=== PATIENT | male | born 1960 | race Caucasian/White ===

== ENCOUNTER → 2020-10-18 12:05 | Outpatient (CLI) | payer BC, SELFPAY ==
--- NOTE | 2020-10-18 12:11 | XR_ITS ---
PROCEDURE: XR KNEE RT 4V CLINICAL INDICATION: RT knee pain COMPARISON: No exams were available for comparison FINDINGS: No fracture or dislocation. No lytic or blastic change. There is normal mineralization. Moderate joint space narrowing medially and there is minor spurring of the tibial spines. There is no effusion. IMPRESSION: Mild degenerative changes medial joint space, no fracture seen Dictated by: Dr. Adelso Long MD 10/18/2020 13:49 Dr. Adelso Long MD in [place] 10/18/2020 13:49
== END ==
PROVIDERS: Visit Provider Orthopaedic Surgery
DX: M25.561 Pain in right knee (principal)
CPT/HCPCS: 73564

== ENCOUNTER 2022-06-22 12:02 | Emergency (ER) | payer BC, SELFPAY ==
[2022-06-22 12:03] VITALS: BP 130/78; PULSE 78; RESP 18; TEMP 36.7; O2SAT 96; BMI 27.8
[2022-06-22 12:08] VITALS: BP 130/78; PULSE 80; RESP 16; O2SAT 97
--- NOTE | 2022-06-22 12:29 | HMH.EDGENADL ---
Discharge Plan Disposition Patient Disposition: Home, Self-Care Condition: Good Prescriptions Prescriptions: New erythromycin 5 mg/gram (0.5 %) ointment 1 applic ophthalmic (eye) TID 7 Days Qty: 5 0RF ciprofloxacin HCl 0.3 % drops See Rx Instructions .ROUTE .COMPLEX Qty: 10 0RF Rx Instructions: put 1-2 drps in affected eye(s) every 2hr up to 8 times/day x2days; then 4 times/day x5days Referrals Follow up/Referrals: Provider,MD Mary [Primary Care Provider] - See instructions Michael Dasilva MD [Staff Physician] - See instructions (Corneal abrasion with foreign body on 06/22. Follow-up) Activity Restrictions/Add. Instructions Additional Instructions/Restrictions: Follow-up with primary care as discussed. If you have any other concerning signs or symptoms, return to the emergency department for further evaluation Clinical Impressions Clinical Impression: Foreign body, intraocular, right eye Corneal abrasion Qualifiers: Encounter type: initial encounter Laterality: right Qualified Code(s): S05.01XA - Injury of conjunctiva and corneal abrasion without foreign body, right eye, initial encounter Discharge ED Provider: Jethro Winn General Adult HPI General Chief complaint: Eye Problems Stated complaint: [id number] Saw dust in eye home accident Time Seen by Provider: 06/22/22 12:20 Mode of Arrival: Ambulatory Source of Information: Patient Limitations: No Limitations Description of Symptoms (Recalled from ER Triage Doc. by RN): pt reports saw dust in R eye x2 days. Pt reports f/b moves around at times and causes pain and blurry vision. Redness noted to R eye. History of Present Illness HPI narrative: This is an otherwise healthy 62-year-old male who is presenting with eye complaint. Patient states that he had sawdust flew into his eye approximately 2 days prior to arrival while he was cutting stairs. Denies any metal work. Patient states that he usually just sleeps and the dust works its way out, however this time it has not. Denies blurry vision, double vision, fevers, chills, scalp pain, any other trauma. He states he has a foreign body sensation in the superior, lateral aspect of his eye without overt pain. Related Data Previous Rx's Medication Instructions Recorded ciprofloxacin HCl 0.3 % eye drops See Rx Instructions ophthalmic 06/22/22 (eye) .COMPLEX #10 mL erythromycin 5 mg/gram (0.5 %) eye 1 applic ophthalmic (eye) TID 7 06/22/22 ointment days #5 grams Allergies Allergy/AdvReac Type Severity Reaction Status Date / Time No Known Allergies Allergy Verified 01/20/21 12:41 [facility] Social History Smoking Status: Never smoker alcohol intake: never substance use type: denies use current occupational status: employed Travel in the last 8 weeks: None household members: family housing: house ROS Obtained: Yes All systems reviewed & no additional complaints except as documented Physical Exam General General appearance: alert and in no apparent distress Head Head exam: atraumatic, normocephalic and normal inspection Eye Eye exam: Present PERRL, EOMI, conjunctival redness and conjunctival injection; Absent jaundice, discharge, nystagmus, mydriasis, periorbital swelling or periorbital tenderness Expanded Eye Exam Slit lamp exam: performed Eyelids: bilateral: normal inspection Pupils: Bilateral: regular, round and irregular Sclera/Conjunctival: left: normal inspection and right: injection and foreign body (Wooden splinter) Comment: Fluorescein uptake lower inferior aspect of bulbar conjunctiva. Foreign body removed with improved symptoms. ENT ENT exam: Present normal exam, normal oropharynx, mucous membranes moist, TM's normal bilaterally and normal external ear exam Neck Neck exam: Present normal inspection, full ROM and trachea midline; Absent meningismus or lymphadenopathy Chest Chest inspection: Present normal inspection and symmetric chest wall rise;
[2022-06-22 12:30] VITALS: BP 120/71; PULSE 79; RESP 17; O2SAT 96
[2022-06-22 13:00] VITALS: BP 131/74; PULSE 67; RESP 17; O2SAT 99
--- NOTE | 2022-06-22 13:00 | PC.NURSE ---
at the bedside
[2022-06-22 13:24] VITALS: BP 128/60; PULSE 64; RESP 18; TEMP 36.7; O2SAT 99
== END 2022-06-22 13:25 | disposition home or self-care (01) ==
PROVIDERS: Emergency Provider Emergency Medicine
DX: S05.51XA Penetrating wound with foreign body of right eyeball, initial encounter (principal); S05.00XA Injury of conjunctiva and corneal abrasion without foreign body, unspecified eye, initial encounter
CPT/HCPCS: 99283

== ENCOUNTER 2025-01-27 18:15 | Outpatient (CLI) | payer BC, SELFPAY ==
--- NOTE | 2025-01-27 15:15 | ECG_ITS ---
APPROVED REPORT Exam: Resting ECG HR:56 bpm ECG Measurements Heart Rate 56 AXES MO 145 P 62 QRSd 113 QRS 73 QT 383 T 63 QTc 374 Conclusion SINUS BRADYCARDIA OW normal ECG UNCONFIRMED REPORT Electronically signed by : Kin Ta MD 01/28/2025 07:30:08
[2025-01-27 18:50] LABS: Alanine Aminotransferase 42 U/L (12-78); Albumin Level 4.2 g/dl (3.5-5.0); Albumin/Globulin Ratio 1.8 (1.1-1.8); Alkaline Phosphatase 48 U/L (38-126); Anion Gap 10.1 mEq/L (5-15); Aspartate Amino Transferase 35 U/L (17-59); Bilirubin,Total 0.5 mg/dl (0.2-1.3); Blood Urea Nitrogen 20 mg/dl (9-20); Calcium 9.2 mg/dl (8.4-10.2); Carbon Dioxide 26 mmol/L (22.0-30.0); Chloride 108 mmol/L (98-107); Chol/HDL Ratio 4.7 (1-3.5); Cholesterol 201 mg/dl (140-200); Estimated Glomerular Filt Rate 75 ml/min (>60); GFR (African American) 91 ML/MIN (>60); Globulin 2.3 g/dL (1.3-3.2); Glucose 80 mg/dl (74-100); HDL Cholesterol 43 mg/dl (40-60); Potassium 4.1 mmoL/L (3.5-5.1); Sodium 140 mmol/L (136-145); Total Protein,Serum 6.5 g/dl (6.3-8.2); Triglycerides 201 mg/dl (30-150); VLDL Cholesterol 40 mg/dL (0-40)
[2025-01-27 19:00] LABS: Direct LDL Cholesterol 134.94 mg/dL (100-129)
[2025-01-27 19:08] LABS: 25-OH Vitamin D, Total 47.4 ng/mL (30-100)
[2025-01-27 19:17] LABS: Basophils % 0.5 % (0.1-2.0); Eosinophils # 0.1 Kmm3 (0.0-0.4); Eosinophils % 1.1 % (0.1-12.0); Hematocrit 45.5 % (42.0-52.0); Immature Granulocytes # 0.01 10^3uL; Immature Granulocytes % 0.2 %; Lymphocytes # 1.8 K/mm3 (0.7-4.5); Lymphocytes % 28.8 % (10-50); Mean Corpuscular HGB Conc 30.8 g/dL (31.8-35.4); Mean Corpuscular Volume 100.9 fl (80-94); Mean Platelet Volume 11.9 fl (7.4-10.4); Monocytes # 0.4 K/mm3 (0.1-1.0); Monocytes % 6.6 % (1.7-9.3); Neutrophils # 3.9 K/mm3 (1.8-7.8); Neutrophils % 62.8 % (37.0-80.0); Nucleated Red Blood Cells # 0 10^3/uL; Nucleated Red Blood Cells % 0 %; Platelet Count 138 K/mm3 (142-424); Red Blood Count 4.51 M/mm3 (4.60-6.20); Red Cell Distribution Width 14.8 % (11.5-17.5); Red Cell Distribution Width-SD 55.9 fL; White Blood Count 6.2 K/mm3 (4.8-10.8)
[2025-01-27 19:21] LABS: Prostate Specific Ag Screen 0.7 ng/ml (0.0-4.0); Thyroid Stimulating Hormone 1.42 uIU/mL (0.465-4.68)
[2025-01-27 19:40] LABS: Vitamin B12 400 pg/mL (239-931)
[2025-01-27 19:43] LABS: HIV Combo NEGATIVE (Negative)
[2025-01-27 19:47] LABS: Hepatitis C Ab Qual. W/ RFX NEGATIVE (Negative)
[2025-01-27 20:11] LABS: Hemoglobin A1C 5.7 % (4.0-6.0)
== END 2025-01-27 23:59 | disposition home or self-care (01) ==
LOC: LAB 18:16
PROVIDERS: PCP Family Medicine; Visit Provider Family Medicine
DX: R53.83 Other fatigue (principal); R00.1 Bradycardia, unspecified
CPT/HCPCS: 36415; 80053; 80061; 82306; 82607; 83036; 84443; 85025; 86803; 87389; 93005; G0103

== ENCOUNTER 2025-02-16 10:06 | Outpatient (CLI) | payer BC, SELFPAY ==
--- NOTE | 2025-02-16 | CA_ITS ---
APPROVED REPORT Exam: Pharmacologic Technologist: Sue Cabrera Ht: 5 ft 11 in Wt: 219 lbs BSA: 2.19 m2 HR: 52 bpm BP: 136/83 mmHg Stress Test Details Test: Lexiscan HR Resting HR: 52 bpm Max Heart Rate (APMHR): 156.533568 bpm Max HR Achieved: 63 bpm Target HR (85% APMHR): 132.342358 bpm % of APMHR: 40.38 Recovery HR: 55 bpm BP Resting BP: 136.0/83.0 mmHg Max BP: 139.0/75.0 mmHg Recovery BP: 139.0/75.0 mmHg ECG Resting ECG: Sinus bradycardia Stress ECG Conclusion Symptoms: Dyspnea Arrhythmias/Ectopy: - ST-T Changes: Less than [address] depression Conclusion: EKG unremarkable due to Lexiscan infusion. Electronically signed by : Sulema Pereira MD 02/19/2025 15:36:05
--- NOTE | 2025-02-16 10:30 | CA_ITS ---
APPROVED REPORT EXAM: Comprehensive 2D, Doppler, and color-flow Echocardiogram Bird Cage Assembler: Leilani Carter CRT Ht: 5 ft 11 in Wt: 219lbs BSA: 2.19 BP: 140/80 mmHg Indications: Chest Pain 2D Dimensions LA Volume 40.40 mL LA Volume Index 18.00 mL/m2 (M/F) 16-34 M-Mode Dimensions RVDd 2.43 cm (0.9-2.6) LA Diam 3.52 cm (1.9-4.0) LVDd 4.62 cm (3.5-5.7) LVDs 3.19 cm (3.5-5.7) IVSd 1.39 cm (0.6-1.1) PWd 0.93 cm (0.6-1.1) EF (Teich) 58.70% FS 31.00% EDV (Teich) 98.30 mL TAPSE 2.13 (<1.7) ESV (Teich) 40.60 mL LV Diastology E Decel Time 150 (160-240 msec) E/A Ratio 0.94 MED A' 15.40 cm/s LAT A' 12.60 cm/s Aortic Valve AI PHT 668.00 ms AO Peak GR. 6.40 mmHg Mitral Valve MV E Max Jj. 69.0 (40-130 cm/s) MV A Velocity 73.0 (40-130 cm/s) E/A Ratio 0.94 MV PHT 44.0 ms Pulmonary Valve PV Peak Velocity 98.0 (50-150 cm/s) Tricuspid Valve TR P. Velocity 280.00 cm/s RAP Estimate 10.00 mmHg RVSP 41.30 mmHg Left Ventricle The left ventricle is normal size. The left ventricular systolic function is normal. The left ventricular ejection fraction is within the normal range. There is normal left ventricular wall thickness. There is normal LV segmental wall motion. The left ventricular diastolic function is normal. LVEF is 55%. Right Ventricle The right ventricle is normal size. The right ventricular systolic function is normal. Atria The left atrium size is normal. The right atrium size is normal. There is no Doppler evidence of interatrial shunt. Aortic Valve The aortic valve opens well. There is no aortic valvular stenosis. Mild aortic regurgitation is present. Mitral Valve The mitral valve is normal in structure. No evidence of mitral valve stenosis. Trace mitral regurgitation. Tricuspid Valve Tricuspid valve is grossly normal in structure and function. Trace tricuspid regurgitation. There is insufficient TR jet to estimate RVSP. Pulmonic Valve The pulmonary valve is normal in structure. Trace pulmonic regurgitation. Great Vessels The aortic root is normal in size. IVC is normal in size and collapses >50% with inspiration. Pericardium There is no pericardial effusion. Other Information Study Quality: Fair Conclusion Normal biventricular systolic function. Mild AI. Electronically signed by : Sulema Pereira MD 02/21/2025 16:30:17
--- NOTE | 2025-02-16 11:30 | NM_ITS ---
APPROVED REPORT Exam: Nuclear Stress Test Indication: SOB, Fatigue Patient Location: Outpatient Stress Tech: Sue Cabrera [place] Tech:Nat Padilla, ARRT, RT (R)(N) Ht: 5 ft 11 in Wt: 215 lbs HR: 50 bpm BP: 136/83 mmHg BSA: 2.17 m2 TID: 1.03 BMI: 29.9 History: SOB, Fatigue Procedure: Patient received 0.4 mg of intravenous Lexiscan, resting heart rate 50 bpm, resting blood pressure 136/83 mmHg, with Lexiscan maximum heart rate achieved was 76 bpm which is % of the maximum predicted heart rate and blood pressure was 145/79 mmHg. With Lexiscan, patient denied any complaint of chest pain. Cardiac Stress and Resting SPECT Images: Cardiac Stress and Resting SPECT images were obtained using technetium 99m Myoview 31.8 mCi stress and 10.82 mCi at rest. Resting and stress imaging in supine positions demonstrate a small sized, moderate, tapered perfusion defect in the basal inferior LV wall. This is no longer visualized with prone stress imaging. Findings are suggestive of diaphragmatic attenuation. Gated imaging demonstrates mild reduction global LV systolic function. LVEF is calculated at 48%. Conclusion: Diaphragmatic attenuation is present. No evidence of focal fixed or reversible perfusion defects. Gated imaging demonstrates mild reduction global LV systolic function. LVEF is calculated at 48%. Correlation with new or recent TTE is suggested. Electronically signed by : Sulema Pereira MD 02/17/2025 13:13:50
[2025-02-16] MEDS: SODIUM CHLORIDE 0.9% 10ML SYR (RAD ONLY) 10 ML IV ×2 (13:10)
[2025-02-16] MEDS: ISOTOPE MYOVIEW (PER STUDY) 1 DOSE IV (13:10)
[2025-02-16] MEDS: REGADENOSON 0.4MG/5ML SYRINGE 0.4 MG IV (13:10)
== END 2025-02-16 23:59 | disposition home or self-care (01) ==
LOC: RT 10:07
PROVIDERS: PCP Family Medicine; Visit Provider Family Medicine
DX: I35.1 Nonrheumatic aortic (valve) insufficiency (principal); I20.89 Other forms of angina pectoris; R94.39 Abnormal result of other cardiovascular function study
CPT/HCPCS: 78452; 93017; 93018; 93306; A9502; J2785

== ENCOUNTER 2025-03-04 11:00 | Outpatient (CLI) | payer BC, SELFPAY ==
--- NOTE | 2025-03-04 11:06 | XR_ITS ---
FINAL REPORT TECHNIQUE: Chest PA & Lateral CLINICAL HISTORY: sob,smoker FINDINGS: 2 views of the chest were performed. The heart size is normal. The mediastinum is within normal limits. There is no acute cardiopulmonary process. Lucency in the upper lobes may be related to underlying centrilobular emphysema. There are no pleural effusions. There is no pneumothorax. The bony thorax appears intact. IMPRESSION: 1. Biapical lucency, possibly related to underlying changes of centrilobular emphysema. Authenticated and ERN
== END 2025-03-04 23:59 | disposition home or self-care (01) ==
LOC: RAD 11:00
PROVIDERS: PCP Family Medicine; Visit Provider Physician Assistant
DX: R91.8 Other nonspecific abnormal finding of lung field (principal); R06.02 Shortness of breath; Z87.891 Personal history of nicotine dependence
CPT/HCPCS: 71046

== ENCOUNTER 2025-03-17 12:00 | Outpatient (CLI) | payer BC, SELFPAY ==
[2025-03-17 12:21] VITALS: BMI 30.2
[2025-03-17 12:47] VITALS: BP 139/79; PULSE 58; RESP 20; TEMP 36.6; O2SAT 96
[2025-03-17 12:47] LABS: Chloride 102 mmol/L (98-107); Potassium 4.1 mmoL/L (3.5-5.1); Sodium 137 mmol/L (136-145)
[2025-03-17 12:50] LABS: Blood Urea Nitrogen 19 mg/dl (9-20); Creatinine Clearance Estimated 104 mL/min (50-200); Creatinine,Serum 0.90 mg/dl (0.66-1.25); Estimated Glomerular Filt Rate 85 ml/min (>60); GFR (African American) 103 ML/MIN (>60)
[2025-03-17 12:51] LABS: Anion Gap 13.1 mEq/L (5-15); Calcium 9.2 mg/dl (8.4-10.2); Carbon Dioxide 26 mmol/L (22.0-30.0); Glucose 113 mg/dl (74-100)
--- NOTE | 2025-03-17 13:00 | CT_ITS ---
APPROVED REPORT Computer Operations Manager: CLINICAL INDICATION Chest Pain TECHNIQUE Image Acquisition: A 128 slice MDCT scanner (Pretty in my Pocket (PRIMP)a View) was used for data acquisition. A noncontrast coronary calcium scan was performed. A CT attenuation threshold of 130 Hounsfield units (HU) was used for the detection of calcium in contiguous voxels of 1 sq mm in area to be counted as individual lesions. Bolus tracking in the ascending aorta with a threshold of 180 HU was performed. Immediately afterwards, ECG synchronized cardiac CT was then performed from the cardiac base to apex using retrospective gating with ECG tube current modulation. A total of 85 mL of Isovue 370 mg/mL contrast medium was administered at 5 mL/sec followed by a saline flush using a biphasic injection protocol. A tube voltage of 120 KVp was used. The patient received the following medications prior to the cardiac CT. 25 mg of oral metoprolol The average heart rate at the time of acquisition was 54 bpm and regular. Image Reconstruction Transaxial images were reconstructed at 0.67 mm slide thickness. Data was reviewed interactively on an advanced workstation capable of 2 and 3-dimensional displays in all conventional reconstruction formats, including multiplanar reformations, maximum intensity projections, curved multiplanar reformations, and volume rendered reconstructions. When applicable, selected routine images describing the relevant coronary anatomy and pathology were saved and sent to PACS. Complications None Technical Quality Overall image quality was fair. Coronary artery opacification was fair. Total DLP (Dose-Length Product) is 1438.5 mGy-cm. The reported value represents the total of one or more individual components during the CT acquisition of this date and at this time, and as such, the same value may appear in more than one CT report depending on the interpreting/reporting physicians. COMPARISON None FINDINGS CT Coronary Calcium Scoring LMA (Left Main Artery) = 0 LAD (Left Anterior Descending) = 73 LCX (Left Coronary Circumflex) = 0 RCA (Right Coronary Artery) = 36 Total Calcium Score = 109 using the AJ-130 method. The observed calcium score of 109 is at 84th percentile for subjects of the same age, sex, and race/ethnicity. The interpretation of the calcium heart score is based on the following continuum*: 0 = no calcified plaque detected (risk of coronary artery disease is very low ??? less than 5%) 1-10 = calcium detected in extremely minimal levels (risk of coronary diseases is still low ??? less than 10%) 11-100 = mild levels of plaque detected with certainty (mild or minimal narrowing of heart arteries is likely) 101-400 = definite,at least moderate levels of plaque detected (relatively high risk of a heart attack within 3-5 years) >401-999 = extensive levels of plaque detected (high risk of heart attack, high levels of vascular disease are present, high likelihood of at least one significant coronary narrowing) *The calcium heart score quantifies the burden of coronary calcification/plaque in the coronary arteries. The calcium heart score is not able to evaluate the presence or burden of non-calcified (i.e. soft) plaque. There is no identifiable calcification in the aortic valve, mitral annulus or mitral valve, pericardium, or myocardium. Coronary CT Angiography The coronary arterial system is right dominant. Quantitative Stenosis Grading: Left Main (LM): The left main originates normally from the left sinus of Valsalva. The LM bifurcates into the left anterior descending artery and left circumflex artery. The LM is patent with no evidence of atherosclerosis. Left Anterior Descending (LAD) and Diagonal Branches: The LAD gives off 3 diagonal branch(es). There is mixed calcified/noncalcified plaque in the proximal LAD segment, with up to 70-90% luminal stenosis. There is no evidence of LAD-myocardial bridge. Left Circumflex (LCX) and Obtuse Marginals (OM): The LCX gives off 1 Obtuse Marginal (OM) branch(es). The LCX and its branches are patent with no evidence of atherosclerosis. Right Coronary Artery (RCA): The RCA originates normally from the right sinus of Valsalva. The RCA gives off a posterior descending artery (PDA) and posterolateral (PL) branches. there is mixed calcified/noncalcified plaque in the proximal RCA segment, with up to 25-49% luminal stenosis. Non-Coronary Cardiac Findings: Analysis of the left ventricular (LV) structure and function was performed after 3-D reconstruction of the LV from axial images, with user-corrected automatic contouring for assessment of LV volumes and user-defined reconstruction from oblique planes for measurement of 3-D cardiac structure and function. -The left ventricle systolic function is normal. -There is no left atrial appendage filling defect. Two right pulmonary veins and two left pulmonary veins drain normally into the left atrium. -No pericardial thickening or calcification. -Central and branch pulmonary arteries in the [id number] are unremarkable. -Thoracic aorta within the visualized thoracic aortic-branches in the [id number] is unremarkable. Extracardiac Structures No significant extra-cardiac findings. Note, however, that this study is focused on the cardiac findings. IMPRESSION -Fair image quality. - Presence of coronary calcification with an Agatston score = 109 using the AJ-130 method. -The observed calcium score of 109 is at 84th percentile for subjects of the same age, sex, and race/ethnicity. - Mixed calcified/noncalcified plaque in the proximal LAD and RCA segments with likely evidence of significant flow-limiting atherosclerosis of the proximal LAD. -CAD-RADS 4A. Management recommendations per ACC/AHA guidelines*, as clinically appropriate. *Recommendations: CAD RADS 0: Reassurance. Consider non-atherosclerotic causes of chest pain. CAD RADS 1: Consider non-atherosclerotic causes of chest pain. Consider preventive therapy and risk factor modification. CAD RADS 2: Consider non-atherosclerotic causes of chest pain. Consider preventive therapy and risk factor modification, particularly for patients with nonobstructive plaque in multiple segments. CAD RADS 3: Consider further functional testing. Consider symptom-guided anti-ischemic and preventive pharmacotherapy as well as risk factor modification per published guideline statements. CAD RADS 4A: Consider further functional testing or invasive coronary angiography with revascularization per published guideline statements. Consider symptom-guided anti-ischemic and preventive pharmacotherapy as well as risk factor modification per published guideline statements. CAD RADS 4B: Invasive coronary angiography recommended with revascularization per published guideline statements. Consider symptom-guided anti-ischemic and preventive pharmacotherapy as well as risk factor modification per published guideline statements. CAD RADS 5: Consider invasive angiography and/or viability assessment with revascularization per published guideline statements. Consider symptom-guided anti-ischemic and preventive pharmacotherapy as well as risk factor modification per published guideline statements. CRITICAL RESULT None COMMUNICATION Per this written report The coronary and cardiac findings of this CCTA were reviewed, reported, and signed by Darryl Pereira MD (Quitline Counselor) Conclusion Electronically signed by : Sulema Pereira MD 03/21/2025 00:47:21
[2025-03-17 13:25] VITALS: BP 148/96; PULSE 57; RESP 18; O2SAT 96
[2025-03-17] MEDS: 0.9 % SODIUM CHLORIDE 50 ML VIAL IV (13:37)
[2025-03-17] MEDS: SODIUM CHLORIDE 0.9% 10ML SYR (RAD ONLY) 10 ML IV (13:37)
[2025-03-17] MEDS: IOPAMIDOL-370 (76%);100ML BOTTLE 85 ML IV (13:37)
== END 2025-03-17 13:35 | disposition home or self-care (01) ==
PROVIDERS: PCP Family Medicine; Visit Provider Physician Assistant
DX: I25.10 Atherosclerotic heart disease of native coronary artery without angina pectoris (principal); R42 Dizziness and giddiness; R93.1 Abnormal findings on diagnostic imaging of heart and coronary circulation
CPT/HCPCS: 75574; 80048; Q9967

== ENCOUNTER 2025-04-05 07:40 | Day surgery (SDC) | payer BC, SELFPAY ==
[2025-04-05] VITALS (17 sets, daily range): BP systolic 101–127; BP diastolic 57–80; PULSE 44–64; RESP 16–20; TEMP 36.8; O2SAT 94–100; BMI 29.2
--- NOTE | 2025-04-05 07:28 | IR_ITS ---
APPROVED REPORT Patient Location: Outpatient Pencil Maker: Kenyon Combs, RT (R) PROCEDURES Left heart catheterization Left ventriculogram Selective coronary angiography INDICATION Abnormal CCTA, Angina pectoris Informed consent was obtained prior to the procedure. COMPLICATIONS None Estimated Blood Loss: Less than 10 mls TECHNIQUE One percent lidocaine was used to anesthetize the right groin. The right femoral artery was accessed via the Seldinger technique. A 4-[place] sheath was placed in the right femoral artery. The JL-4 and JR-4 catheter was also used to perform left heart catheterization left ventriculogram and selective coronary angiogram. At the end of the procedure the patient was transferred to the post-op holding area in stable condition for arterial sheath removal. ANGIOGRAPHIC RESULTS The left main artery He has an ostial 10% stenosis The left anterior descending artery Has a proximal eccentric calcified 20 to 30% stenosis with 10% luminal regularities The circumflex artery Nondominant with 10% mid vessel luminal regularities The right coronary artery Dominant with mid vessel 20 to 30% stenosis The ARMAS ventriculogram reveals Preserved 55% The left ventricular end-diastolic pressure 20 mmHg IMPRESSION Mild to moderate proximal LAD disease as described above with mild to moderate proximal to mid dominant right disease Preserved ejection fraction Mildly elevated LVEDP PLAN 1. Medical management with aggressive risk factor modification Electronically signed by : Fortino Dias MD 04/05/2025 10:19:40
[2025-04-05 08:12] LABS: Hematocrit 43.4 % (42.0-52.0); Hemoglobin 14.2 g/dL (14.1-18.0); Immature Granulocytes % 0.2 %; Mean Corpuscular HGB Conc 32.7 g/dL (31.8-35.4); Mean Corpuscular Hemoglobin 32.6 pg (27.0-31.2); Mean Corpuscular Volume 99.5 fl (80-94); Nucleated Red Blood Cells % 0 %; Platelet Count 147 K/mm3 (142-424); Red Blood Count 4.36 M/mm3 (4.60-6.20); Red Cell Distribution Width-SD 53.1 fL; White Blood Count 5.3 K/mm3 (4.8-10.8)
[2025-04-05 08:17] LABS: Chloride 107 mmol/L (98-107); Potassium 3.9 mmoL/L (3.5-5.1); Sodium 136 mmol/L (136-145)
[2025-04-05 08:20] LABS: Anion Gap 6.9 mEq/L (5-15); Blood Urea Nitrogen 16 mg/dl (9-20); Calcium 9.1 mg/dl (8.4-10.2); Carbon Dioxide 26 mmol/L (22.0-30.0); Creatinine Clearance Estimated 101 mL/min (50-200); Creatinine,Serum 0.80 mg/dl (0.66-1.25); Estimated Glomerular Filt Rate 97 ml/min (>60); GFR (African American) 118 ML/MIN (>60); Glucose 121 mg/dl (74-100)
[2025-04-05] MEDS: HEPARIN 1,000 UNITS/ML 10ML VIAL (CATH LAB) 5000 UNIT IV (09:38)
[2025-04-05] MEDS: 0.9 % SODIUM CHLORIDE 500 ML 25 ML IV (09:38)
[2025-04-05] MEDS: HEPARIN 1,000 UNITS/500ML NS (CATH LAB) 3000 UNIT IV (09:38)
[2025-04-05] MEDS: VERAPAMIL 2.5MG/ML 2ML VIAL 2.5 MG IV (09:38)
[2025-04-05] MEDS: LIDOCAINE 1% 10ML MDV 10 ML IJ (09:38)
[2025-04-05] MEDS: NITROGLYCERIN 800MCG/8ML SYR (CATH LAB) 800 MCG IA (09:39)
[2025-04-05] MEDS: MIDAZOLAM HCL 1MG/ML 5ML VIAL 1 MG IV (10:01)
[2025-04-05] MEDS: FENTANYL 100MCG/2ML VIAL 50 MCG IV (10:02)
[2025-04-05] MEDS: IOPAMIDOL-370 (76%);100ML BOTTLE 50 ML IV (15:21)
== END 2025-04-05 13:55 | disposition home or self-care (01) ==
PROVIDERS: PCP Family Medicine; Visit Provider Internal Medicine
PROC: 4A023N7 Measurement of Cardiac Sampling and Pressure, Left Heart, Percutaneous Approach (ICD-10-PCS; CPT 93452; principal; 2025-04-05 07:15)
DX: I25.118 Atherosclerotic heart disease of native coronary artery with other forms of angina pectoris (principal); R93.1 Abnormal findings on diagnostic imaging of heart and coronary circulation; I42.9 Cardiomyopathy, unspecified; Z87.891 Personal history of nicotine dependence; R06.00 Dyspnea, unspecified; R53.83 Other fatigue; R42 Dizziness and giddiness; Z79.82 Long term (current) use of aspirin; Z79.899 Other long term (current) drug therapy
CPT/HCPCS: 80048; 85025; 93452; 93458; 99152; 99153; C1725; C1769; J1200; J1644; J2003; J3010; J7040; Q9967

== ENCOUNTER 2025-05-25 11:27 | Outpatient (CLI) | payer BC, SELFPAY ==
[2025-05-25 15:14] LABS: Lyme Ab IgM CIA ND
[2025-05-25 15:56] LABS: Uric Acid 5.6 mg/dl (3.5-8.5)
[2025-05-25 16:40] LABS: Hemoglobin A1C 5.7 % (4.0-6.0)
[2025-05-25 18:29] LABS: C-Reactive Protein 1.5 mg/L (0-4)
[2025-05-26 12:12] LABS: RA Latex Turbid. <10.0 IU/mL (<14.0)
[2025-05-26 15:17] LABS: Lyme Ab CIA Negative (Negative)
== END 2025-05-25 23:59 ==
LOC: LAB.DROPOF 05-26 09:48
PROVIDERS: PCP Student in an Organized Health Care Education/Training Program; Visit Provider Student in an Organized Health Care Education/Training Program
DX: M25.50 Pain in unspecified joint (principal); R53.83 Other fatigue; R06.09 Other forms of dyspnea; R73.9 Hyperglycemia, unspecified
CPT/HCPCS: 83036; 84550; 85651; 86038; 86140; 86431; 86618

== ENCOUNTER 2025-08-18 08:20 | Day surgery (SDC) | payer BC, SELFPAY ==
--- NOTE | 2025-08-12 17:15 | EXP.HP ---
History of Present Illness *Admission Date: 08/18/25 *History of present illness: Mr. Liu is a 65-year-old gentleman who is here for screening/surveillance colonoscopy. The examination is deemed medically necessary for screening/surveillance colonoscopy. The patient has been seen, interviewed and examined prior to the procedure by both myself and the anesthesia provider. [facility] Disclaimer: The information contained in this section may have been updated after the patient was seen, as this information can be updated by other users. Medical History Patient declines to take medication HLD (hyperlipidemia) CAD (coronary artery disease) Other chest pain Other forms of dyspnea Abnormal findings on diagnostic imaging of heart and coronary circulation Dizziness Surgical History No significant past surgical history Family History Other No significant family history Social History Smoking Status: Former smoker how long ago did patient quit smokin years alcohol intake: never substance use type: denies use current occupational status: retired Travel in the last 8 weeks?: None household members: family housing: house Have you lived/traveled outside [place] in past 30 days?: No Contact w/someone who lives/traveled outside US past 30 days?: No Exposure to someone with infectious disease in past 14 days?: No Do you have a fever (greater than 100.4 F or 38 C)?: No Have you tested positive for COVID-19?: No Exposed to someone with COVID-19 in past 14 days?: No Do you have a sore throat?: No Do you have a cough?: No Do you have any weakness?: No Do you have any diarrhea?: No Are you experiencing any unusual bleeding?: No Do you have any muscle aches/pain?: No Do you have any abdominal pain?: No Are you experiencing loss of taste or smell?: No Other Medical History Have you received the Flu Vaccine for this season: No Have you received the Pneumonia Vaccine: No Review of Systems Review of Systems Review of systems (narrative): Negative *Cardiovascular Comments: Negative *Gastrointestinal Comments: Negative *Genitourinary Comments: Negative *Musculoskeletal Comments: Negative *Neurologic Comments: Negative Meds Home Medications and Allergies Home Medications ?Medication ?Instructions ?Recorded ?Confirmed ?Type budesonide-formoterol HFA 80 1 inh inhalation BID #10.2 grams 07/26/25 08/17/25 Rx mcg-4.5 mcg/actuation aerosol inhaler sodium,potassium,mag sulfates 17.5 See Rx Instructions PO .COMPLEX 08/05/25 Rx gram-3.13 gram-1.6 gram oral soln #354 mL (Suprep Bowel Prep Kit) New Prescriptions to Start Prescriptions: Allergies Allergy/AdvReac Type Severity Reaction Status Date / Time No Known Allergies Allergy Verified 08/17/25 13:17 Exam *Routine HEENT Exam Head: Present normocephalic Eye: Present EOMI and PERRL ENT: Present mucous membranes moist *Routine Neck Exam Neck: Present supple *Routine Respiratory Exam Respiratory: Present CTA bilaterally *Routine Cardiovascular Exam Cardiovascular: Present RRR *Routine Abdominal Exam Abdominal: Present soft and normoactive bowel sounds; Absent tenderness *Routine Rectal Exam Rectal:: deferred *Routine Genitalia Exam Genitalia:: deferred *Routine Extremities Exam Extremities: Absent cyanosis, clubbing or edema *Routine Skin Exam Skin: Present warm; Absent rash *Routine Neurological Exam Neurological: Present alert and oriented X3 Assessment and Plan *Assessment and plan (1) Screening for colon cancer: Status: Acute Category: Medical Code(s): Z12.11 - Encounter for screening for malignant neoplasm of colon Plan A/P: 1. Screening for colon cancer is the preprocedural diagnosis. The patient will be anesthetized/sedated using MAC sedation. The patient has been seen and examined. Cardiac and lung assessment prior to the examination is stable. Proceed with planned screening colonoscopy.
[2025-08-17 13:21] VITALS: BMI 28.5
--- NOTE | 2025-08-18 07:05 | P.PCN_ITS ---
[facility] Procedure Note Date: 08/18/25 Time: 10:19 Procedure Note:: Colonoscopy Procedure Report: Colonoscopy with cold snare polypectomy Endoscopist: Flako Edward II, MD Referring physician: Oliver Huerta MD Date of Procedure: August 18, 2025 Equipment: Olympus [id number] adult colonoscope Sedation: MAC sedation Indication: Mr. Liu is a 65-year-old gentleman who is here for screening/surveillance colonoscopy. The patient does state that his last colonoscopy was 12 years ago and was normal. He reports no abdominal pain, weight loss, change in his bowel habits or rectal bleeding. He reports no family history of colon cancer. The examination is deemed medically necessary for screening/surveillance colonoscopy. Procedure: Prior to the procedure, a history and physical exam was performed, and patient's medications and allergies were reviewed. The risks, benefits and alternatives of the sedation and procedure were discussed with the patient. All questions were answered and informed consent was obtained. The patient was brought to the procedure room. Patient identification and proposed procedure were verified by the physician and the nurse. The patient was placed in a left lateral decubitus position and the scope was passed under direct vision. Throughout the procedure, the patient's blood pressure, pulse, and oxygen saturations were monitored continuously. The colonoscopy was accomplished without difficulty. The patient tolerated the procedure well. Findings: On digital rectal examination there was normal rectal tone. There were no external hemorrhoids. The colonoscope was introduced through the anal canal to the rectum and advanced to the cecum. The ileocecal valve and appendiceal orifice were identified. The scope was advanced a short distance into the ileum which appeared grossly normal. The scope was then withdrawn into the colon. There were 3 colon polyps (cecum x 1 (6 mm), descending x 1 (4 mm) and sigmoid x 1 (4 mm)). These were all removed via cold snare polypectomy. The remaining cecum, ascending and transverse colon and mucosa were grossly normal. There were scattered diverticuli throughout the descending and sigmoid colon (LEFT colon). The rectum itself was normal. Upon retroflexion within the rectum there were grade 2 internal hemorrhoids. The preparation was excellent throughout with Emeigh Preparation Score of 9. The cecal time was 14 minutes. Impression: 1. Diminutive colonic polyps x 3 2. Left-sided diverticulosis 3. Grade 2 internal hemorrhoids Plan: I will follow-up the polyp histology and recommend repeat screening/surveillance colonoscopy again in 5 to 7 years based upon the pathology. I would encourage psyllium bulking fiber supplementation on a long-term daily maintenance basis.
[2025-08-18 09:12] VITALS: BP 117/66; PULSE 68; RESP 16; TEMP 36.3; O2SAT 98
[2025-08-18] MEDS: LACTATED RINGERS 1000ML 1,000 ML 50 ML IV (09:21)
--- NOTE | 2025-08-18 09:31 | P.PNANES_ITS ---
[facility] Disclaimer: The information contained in this section may have been updated after the patient was seen, as this information can be updated by other users. Medical History Patient declines to take medication HLD (hyperlipidemia) CAD (coronary artery disease) Other chest pain Other forms of dyspnea Abnormal findings on diagnostic imaging of heart and coronary circulation Dizziness Surgical History No significant past surgical history Family History Other No significant family history Social History Smoking Status: Former smoker how long ago did patient quit smokin years alcohol intake: never substance use type: denies use current occupational status: retired Travel in the last 8 weeks?: None household members: family housing: house Have you lived/traveled outside [place] in past 30 days?: No Contact w/someone who lives/traveled outside [place] past 30 days?: No Exposure to someone with infectious disease in past 14 days?: No Do you have a fever (greater than 100.4 F or 38 C)?: No Have you tested positive for COVID-19?: No Exposed to someone with COVID-19 in past 14 days?: No Do you have a sore throat?: No Do you have a cough?: No Do you have any weakness?: No Do you have any diarrhea?: No Are you experiencing any unusual bleeding?: No Do you have any muscle aches/pain?: No Do you have any abdominal pain?: No Are you experiencing loss of taste or smell?: No [facility] [place] Anesthesia Checklist Patient Identification Patient Identification: Arm Band and Verbal (Name & ) Structural Data Admitted From: Home Planned Operative Procedure/s: colonscopy Consent for Planned Operative Procedure(s) Verified: Yes Verified Documents: Surgical Consent and History and Physical NPO Status Verified Time NPO: 00:00 Additional verifications Anesthesia Reactions: No Hx Blood Transfusions: No Blood Transfusion Reaction: No Airway Assessment Mallampati Score:: Class II Dentition: Good Dentition Neurological Assessment Level of Consciousness: Awake, Alert and Appropriate Anesthesia Plan Anesthesia Risk discussed: Yes Anesthesia Plan: Verified ASA Class: II Anesthesia Type: MAC
[2025-08-18 10:20] VITALS: BP 102/55; PULSE 75; RESP 20; TEMP 36.3; O2SAT 92
[2025-08-18 10:30] VITALS: BP 105/80; PULSE 67; O2SAT 95
[2025-08-18 10:40] VITALS: BP 107/78; PULSE 59; O2SAT 93
[2025-08-18 10:50] VITALS: BP 110/67; PULSE 57; O2SAT 94
== END 2025-08-18 10:50 | disposition home or self-care (01) ==
PROVIDERS: PCP Student in an Organized Health Care Education/Training Program; Visit Provider Internal Medicine Gastroenterology
PROC: 0DJD8ZZ Inspection of Lower Intestinal Tract, Via Natural or Artificial Opening Endoscopic (ICD-10-PCS; CPT 45378; principal; 2025-08-18 10:00)
DX: Z12.11 Encounter for screening for malignant neoplasm of colon (principal); K57.30 Diverticulosis of large intestine without perforation or abscess without bleeding; K64.1 Second degree hemorrhoids; K63.5 Polyp of colon; D12.0 Benign neoplasm of cecum; E78.5 Hyperlipidemia, unspecified; I25.10 Atherosclerotic heart disease of native coronary artery without angina pectoris; Z87.891 Personal history of nicotine dependence; Z79.51 Long term (current) use of inhaled steroids
CPT/HCPCS: 45385; J2003; J2704; J7120